=== PATIENT | male | born 1950 | race African-American/Black ===

== ENCOUNTER 2021-02-16 17:28 | Inpatient (IN) ==
[2021-02-17] MEDS ORDERED: PNEUMOCOCCAL VACCINE (13 VALENT) 0.5 ML SYRINGE IM ONE (09:31)
[2021-02-17] MEDS ORDERED: ONDANSETRON 4 MG/2 ML VIAL IV PRN (09:34)
[2021-02-17] MEDS ORDERED: SIMETHICONE CHEW 125 MG TABLET PO PRN (09:34)
[2021-02-17] MEDS ORDERED: DOCUSATE SODIUM 100 MG CAPSULE PO PRN (09:34)
[2021-02-17] MEDS ORDERED: DEXTROSE 50% 25 GM/50 ML VIAL IV PRN (09:34)
[2021-02-17] MEDS ORDERED: ACETAMINOPHEN 325 MG TABLET PO PRN (09:34)
[2021-02-17] MEDS ORDERED: GLUCAGON 1 MG VIAL IM PRN (09:34)
[2021-02-17 10:26] LABS: Basophils % 0.3 % (0.0-0.8); Eosinophils % 0.2 % (0.00-10.9); Hematocrit 28.5 VOL% (42.0-52.0); Hemoglobin 9.1 GM/DL (14.0-18.0); Immature Granulocytes % 0.5 %; Immature Granulocytes Absolute 0.05 #; Lymphocytes # 1.5 10*3/uL (1.4-4.0); Lymphocytes % 13.5 % (21.2-54.2); Mean Corpuscular HGB Conc 31.9 GM/DL (32-36); Mean Corpuscular Volume 92.2 FL (87-102); Mean Platelet Volume 10.6 FL (9.6-12.0); Monocytes % 7.8 % (1.7-12.7); Neutrophils % 77.7 % (38.7-73.9); Platelet Count 315 T/CUMM (130-400); Red Blood Count 3.09 MC/CUMM (3.8-5.5); Red Cell Distribution Width 14.6 % (9.3-17.3); White Blood Count 10.8 T/CUMM (4-12)
[2021-02-17 10:43] LABS: Albumin 3.8 G/DL (3.4-5.0); Bilirubin,Total 0.5 MG/DL (0.20-1.00); Calcium 8.9 MG/DL (8.5-10.1); Potassium 4.3 MMOL/L (3.5-5.1); Total Protein 7.4 G/DL (6.4-8.2)
[2021-02-17] MEDS ORDERED: LORazepam 2 MG/1 ML VIAL IV PRN (11:21)
[2021-02-17] MEDS ORDERED: ALBUTEROL/IPRATROPIUM 3 ML NEB RESP TX PRN (11:21)
[2021-02-17] MEDS: carvediloL 12.5 MG TABLET PO SCH ×2 (11:56→20:51)
[2021-02-17] MEDS: SODIUM CHLORIDE 0.9% 1,000 ML IV SCH (11:56)
[2021-02-17 12:34] LABS: PT Patient Result 11.4 SECS (10.5-12.0); Partial Thromboplastin Time 24.6 SECS (23.9-33.8)
[2021-02-17 13:51] LABS: Bacteria,Urine Occasional /HPF (Few); Bilirubin,Urine Negative (Negative); Blood, Urine Negative (Negative); Glucose,Urine (UA) >=500 mg/dL (Negative); Ketones,Urine 80 mg/dL (Negative); Nitrite,Urine Negative (Negative); Protein,Urine Negative; RBC,Urine 2 /HPF (0-4); Urine Appearance CLEAR (Clear); Urine Color Yellow (Yellow); Urine Specific Gravity 1.024 (1.001-1.035); Urine Urobilinogen < 2.0 EU/DL (0.2-1.0)
[2021-02-17 16:22] LABS: Hematocrit 24.9 VOL% (42.0-52.0); Hemoglobin 8.3 GM/DL (14.0-18.0)
[2021-02-17] MEDS: TRIAMCINOLONE 0.1% CREAM 15 GM TUBE TOP SCH (20:28)
[2021-02-17] MEDS: PANTOPRAZOLE 40 MG VIAL IV SCH (20:51)
[2021-02-17] MEDS: GABAPENTIN 600 MG TABLET PO SCH (20:51)
[2021-02-17] MEDS ORDERED: hydrOXYzine HCL 25 MG TABLET PO SCH (21:00)
[2021-02-17 22:52] LABS: Hematocrit 23.1 VOL% (42.0-52.0); Hemoglobin 7.5 GM/DL (14.0-18.0)
[2021-02-18] MEDS: SODIUM CHLORIDE 0.9% 1,000 ML IV SCH ×2 (01:56→15:25)
[2021-02-18 07:05] LABS: Basophils % 0.3 % (0.0-0.8); Eosinophils # 0.1 10*3/uL (0.0-0.87); Eosinophils % 1.4 % (0.00-10.9); Hematocrit 25.3 VOL% (42.0-52.0); Hemoglobin 8.2 GM/DL (14.0-18.0); Immature Granulocytes % 0.4 %; Immature Granulocytes Absolute 0.03 #; Lymphocytes # 1.4 10*3/uL (1.4-4.0); Lymphocytes % 18.6 % (21.2-54.2); Mean Corpuscular HGB Conc 32.4 GM/DL (32-36); Mean Corpuscular Volume 92.7 FL (87-102); Mean Platelet Volume 9.6 FL (9.6-12.0); Monocytes % 9.7 % (1.7-12.7); Neutrophils % 69.6 % (38.7-73.9); Platelet Count 273 T/CUMM (130-400); Red Blood Count 2.73 MC/CUMM (3.8-5.5); Red Cell Distribution Width 14.5 % (9.3-17.3); White Blood Count 7.7 T/CUMM (4-12)
[2021-02-18 07:24] LABS: Calcium 8.5 MG/DL (8.5-10.1); Potassium 3.8 MMOL/L (3.5-5.1)
[2021-02-18] MEDS ORDERED: LACTATED RINGERS 1,000 ML IV SCH (08:00)
[2021-02-18] MEDS ORDERED: FOLIC ACID 1 MG TABLET PO SCH (09:00)
[2021-02-18] MEDS ORDERED: THIAMINE 100 MG TABLET PO SCH (09:00)
[2021-02-18] MEDS ORDERED: LOSARTAN 50 MG TABLET PO SCH (09:00)
[2021-02-18] MEDS ORDERED: CETIRIZINE 10 MG TABLET PO SCH (09:00)
[2021-02-18] MEDS ORDERED: MULTIVITAMIN (CENTRUM) TABLET PO SCH (09:00)
[2021-02-18] MEDS ORDERED: propofoL 200 MG/20 ML VIAL IV ONE (09:03)
[2021-02-18] MEDS ORDERED: LIDOCAINE 2% 5 ML VIAL ONE (09:03)
[2021-02-18] MEDS: carvediloL 12.5 MG TABLET PO SCH (10:29)
[2021-02-18] MEDS: PANTOPRAZOLE 40 MG VIAL IV SCH (10:30)
[2021-02-18] MEDS: TRIAMCINOLONE 0.1% CREAM 15 GM TUBE TOP SCH (10:30)
[2021-02-18] MEDS: GABAPENTIN 600 MG TABLET PO SCH (10:30)
[2021-02-18 12:23] VITALS: BP 149/70
== END 2021-02-18 16:15 | disposition home or self-care (01) | DRG 368 ==
LOC: N.3E 02-17 08:57 → SUATTDRO 02-17 08:57
PROVIDERS: ADMIT Internal Medicine; ATTEND Internal Medicine